=== PATIENT | female | born 1965 | race Caucasian/White ===

== ENCOUNTER 2020-01-31 12:43 | Outpatient (CLI) | payer OTHER, SELFPAY ==
[2020-01-31 21:30] LABS: SARS-CoV-2 RNA PCR Negative
== END 2020-01-31 12:44 | disposition home or self-care (01) ==
LOC: CHSLAB 12:45
PROVIDERS: PCP Nurse Practitioner Family; Visit Provider Nurse Practitioner Family
DX: Z20.828 Contact with and (suspected) exposure to other viral communicable diseases (principal)
CPT/HCPCS: 87635; C9803; U0003

== ENCOUNTER 2020-05-17 08:09 | Outpatient (CLI) | payer OTHER, SELFPAY ==
--- NOTE | ~2020-05-17 | MM_ITS ---
EXAMINATION: MM screening cody BI w norris HISTORY: Screening mammogram TECHNIQUE: Craniocaudal and mediolateral oblique 3-D tomosynthesis images were obtained and synthetic 2-D images were generated. CAD analysis was submitted and interpreted. COMPARISON: 01/18/2019, 01/05/2018, 06/18/2016 bilateral digital screening mammogram examinations BREAST PARENCHYMAL COMPOSITION: The breasts are heterogeneously dense, which may obscure small masses . FINDINGS: There is no evidence of suspicious mass, calcification, or architectural distortion to sugg est malignancy in either breast. There has been no suspicious interval change. IMPRESSION: 1. No mammographic evidence of malignancy. 2. Recommend routine screening mammography in one year. BI-RADS Category 1: Negative Reviewed, dictated and finalized at location A. ITY DEVELOPER
[2020-05-17 08:24] LABS: Hematocrit 42.4 % (35.0-49.0); Hemoglobin 13.6 g/dL (12.0-15.0); Mean Corpuscular HGB Conc 32.1 g/dL (32.0-36.0); Mean Corpuscular Hemoglobin 29.3 pg (27.0-31.0); Mean Corpuscular Volume 91.4 fL (78.0-102.0); Mean Platelet Volume 10.8 fl (9.2-11.8); Platelet Count Result 202 K/mm3 (150-420); Red Blood Count 4.64 M/mm3 (4.20-5.40); White Blood Count 7.1 K/mm3 (4.8-10.8)
[2020-05-17 09:06] LABS: Hemoglobin A1C 6.5 % (<5.7)
[2020-05-17 09:27] LABS: Alanine Aminotransferase 33 U/L (14-59); Alkaline Phosphatase 69 U/L (46-116); Anion Gap 8 mmol/L (8-16); Aspartate Amino Transferase 17 U/L (15-37); Bilirubin,Total 0.3 mg/dL (0.00-1.00); Blood Urea Nitrogen 19 mg/dL (7-18); Calcium 9.2 mg/dL (8.5-10.1); Carbon Dioxide 31 mmol/L (21-32); Chloride 104 mmol/L (98-108); Cholesterol 125 mg/dL (0-200); Estimated Glomerular Filt Rate > 60; Glucose 132 mg/dL (70-99); HDL Direct 36 mg/dL (40-60); LDL Cholesterol Calculated 67 mg/dL (<130); Osmolality Calculated 300 mOsm/kg (285-295); Potassium 4.4 mmol/L (3.5-5.1); Sodium 143 mmol/L (136-145); Thyroid Stimulating Hormone 2.02 uIU/mL (0.36-3.74); Triglycerides 108 mg/dL (0-150)
== END 2020-05-17 08:10 | disposition home or self-care (01) ==
PROVIDERS: PCP Nurse Practitioner Family; Visit Provider Obstetrics & Gynecology
DX: E87.2 Acidosis (principal); E11.9 Type 2 diabetes mellitus without complications; Z12.31 Encounter for screening mammogram for malignant neoplasm of breast
CPT/HCPCS: 36415; 77063; 77067; 80053; 80061; 83036; 84443; 85027

== ENCOUNTER 2021-01-23 08:11 | Outpatient (CLI) | payer OTHER, SELFPAY ==
[2021-01-25 14:30] LABS: Varicella IgM Antibody <=0.90 (<=0.90)
[2021-01-25 18:46] LABS: Mumps Virus IgG Antibody <9.00 AU/mL; Rubella IgG Antibody 1.67 Index
[2021-01-26 10:12] LABS: NIL 0.02 IU/mL; Quantiferon TB Plus, 1T NEGATIVE
[2021-01-26 15:19] LABS: Rubeola Measles IgG >300.00 AU/mL
== END 2021-01-23 08:12 | disposition home or self-care (01) ==
LOC: CHSLAB 08:15
PROVIDERS: PCP Nurse Practitioner Family; Visit Provider Nurse Practitioner Family
DX: Z02.1 Encounter for pre-employment examination (principal)
CPT/HCPCS: 36415; 86480; 86735; 86762; 86765; 86787

== ENCOUNTER 2021-06-07 12:41 | Outpatient (CLI) | payer OTHER, SELFPAY ==
--- NOTE | ~2021-06-07 | MM_ITS ---
EXAMINATION: MM screening cody BI w norris HISTORY: Screening mammogram TECHNIQUE: Craniocaudal and mediolateral oblique 3-D tomosynthesis images were obtained and synthetic 2-D images were generated. CAD analysis was submitted and interpreted. COMPARISON: 05/17/2020, 01/18/2019, 01/05/2018 bilateral screening mammogram examinations BREAST PARENCHYMAL COMPOSITION: The breasts are heterogeneously dense, which may obscure small masses . FINDINGS: There is no evidence of suspicious mass, calcification, or architectural distortion to sugg est malignancy in either breast. There has been no suspicious interval change. IMPRESSION: 1. No mammographic evidence of malignancy. 2. Recommend routine screening mammography in one year. BI-RADS Category 1: Negative Reviewed, dictated and finalized at location A. VE BOARD RACKER
== END 2021-06-07 12:42 | disposition home or self-care (01) ==
PROVIDERS: PCP Nurse Practitioner Family; Visit Provider Obstetrics & Gynecology
DX: Z12.31 Encounter for screening mammogram for malignant neoplasm of breast (principal)
CPT/HCPCS: 77063; 77067

== ENCOUNTER 2022-08-15 11:42 | Outpatient (CLI) | payer OTHER, SELFPAY ==
--- NOTE | ~2022-08-15 | MM_ITS ---
EXAMINATION: MM screening cody BI w norris HISTORY: Screening mammogram TECHNIQUE: Craniocaudal and mediolateral oblique 3-D tomosynthesis images were obtained and synthetic 2-D images were generated. CAD analysis was submitted and interpreted. COMPARISON: 06/07/2021, 05/17/2020, 01/18/2019 bilateral screening mammogram examinations BREAST PARENCHYMAL COMPOSITION: The breasts are heterogeneously dense, which may obscure small masses . FINDINGS: There is no evidence of suspicious mass, calcification, or architectural distortion to sugg est malignancy in either breast. There has been no suspicious interval change. IMPRESSION: 1. No mammographic evidence of malignancy. 2. Recommend routine screening mammography in one year. BI-RADS Category 1: Negative Reviewed, dictated and finalized at location A. RY GROWER
== END 2022-08-15 11:43 | disposition home or self-care (01) ==
LOC: CHSIMG 11:44
PROVIDERS: PCP Nurse Practitioner Family; Visit Provider Obstetrics & Gynecology
DX: Z12.31 Encounter for screening mammogram for malignant neoplasm of breast (principal)
CPT/HCPCS: 77063; 77067

== ENCOUNTER 2023-06-27 08:36 | Outpatient (CLI) | payer OTHER, SELFPAY ==
[2023-06-27 08:50] LABS: Basophils Absolute Auto 0.07 K/mm3 (0.00-0.10); Eosinophils Absolute Auto 0.13 K/mm3 (0.02-0.50); Eosinophils Percent Auto 1.9 % (1.0-6.0); Hemoglobin 14.2 g/dL (12.0-15.0); Immature Granulocyte Absolute 0.02 K/mm3 (0.00-0.00); Immature Granulocyte Percent A 0.3 % (0.0-0.0); Lymphocytes Absolute Auto 0.92 K/mm3 (1.10-4.50); Lymphocytes Percent Auto 13.8 % (18.0-42.0); Mean Corpuscular Hemoglobin 30.7 pg (27.0-31.0); Mean Corpuscular Volume 92.9 fL (78.0-102.0); Mean Platelet Volume 10.1 fl (9.2-11.8); Monocytes Absolute Auto 0.47 K/mm3 (0.10-0.90); Neutrophils Absolute Auto 5.1 K/mm3 (1.7-7.2); Platelet Count Result 192 K/mm3 (150-420); Red Blood Count 4.63 M/mm3 (4.20-5.40); Red Cell Distribution Width 12.5 % (11.6-14.4); White Blood Count 6.7 K/mm3 (4.8-10.8)
[2023-06-27 09:11] LABS: Creatinine Urine 74.45 mg/dL (40-278); MALB Creatinine Ratio 17.4 mg/g (0-30); Microalbumin Urine Random < 13.0 mg/L
[2023-06-27 09:12] LABS: Hemoglobin A1C 7.7 % (<5.7)
[2023-06-27 09:24] LABS: Alanine Aminotransferase 49 U/L (14-59); Albumin Level 3.8 g/dL (3.4-5.0); Alkaline Phosphatase 86 U/L (46-116); Anion Gap 5 mmol/L (8-16); Aspartate Amino Transferase 23 U/L (15-37); Bilirubin,Total 0.4 mg/dL (0.00-1.00); Blood Urea Nitrogen 22 mg/dL (7-18); Carbon Dioxide 32 mmol/L (21-32); Chloride 103 mmol/L (98-108); Cholesterol 217 mg/dL (0-200); Estimated Glomerular Filt Rate > 60; Glucose 191 mg/dL (70-99); HDL Direct 60 mg/dL (40-60); LDL Cholesterol Calculated 128 mg/dL (<130); Osmolality Calculated 298 mOsm/kg (285-295); Potassium 4.4 mmol/L (3.5-5.1); Sodium 140 mmol/L (136-145); Total Protein 6.9 g/dL (6.4-8.2); Triglycerides 146 mg/dL (0-150)
== END 2023-06-27 08:37 | disposition home or self-care (01) ==
LOC: CHSLAB 08:37
PROVIDERS: PCP Family Medicine; Visit Provider Family Medicine
DX: E11.9 Type 2 diabetes mellitus without complications (principal); E78.2 Mixed hyperlipidemia
CPT/HCPCS: 36415; 80053; 80061; 82043; 83036; 85025

== ENCOUNTER 2023-09-19 08:26 | Outpatient (CLI) | payer OTHER, SELFPAY ==
--- NOTE | ~2023-09-19 | MM_ITS ---
EXAMINATION: MM screening cody BI w norris HISTORY: Screening mammogram TECHNIQUE: Craniocaudal and mediolateral oblique 3-D tomosynthesis images were obtained and synthetic 2-D images were generated. CAD analysis was submitted and interpreted. COMPARISON: August 15, 2022, June 07, 2021 bilateral screening mammogram examinations BREAST PARENCHYMAL COMPOSITION: The breasts are heterogeneously dense, which may obscure small masses . FINDINGS: There is no evidence of suspicious mass, calcification, or architectural distortion to sugg est malignancy in either breast. There has been no suspicious interval change. IMPRESSION: 1. No mammographic evidence of malignancy. 2. Recommend routine screening mammography in one year. BI-RADS Category 1: Negative Reviewed, dictated and finalized at location A.
== END 2023-09-19 08:27 | disposition home or self-care (01) ==
LOC: CHSIMG 08:27
PROVIDERS: PCP Family Medicine; Visit Provider Obstetrics & Gynecology
DX: Z12.31 Encounter for screening mammogram for malignant neoplasm of breast (principal)
CPT/HCPCS: 77063; 77067

== ENCOUNTER 2024-01-20 15:56 | Outpatient (NON) | payer OTHER, SELFPAY ==
[2024-01-20 16:16] LABS: Creatinine Urine 46.93 mg/dL (40-278); MALB Creatinine Ratio 27.7 mg/g (0-30); Microalbumin Urine Random < 13.0 mg/L
== END 2024-01-20 15:57 | disposition home or self-care (01) ==
LOC: CHSLAB 15:57
PROVIDERS: Visit Provider Nurse Practitioner Family
DX: E11.9 Type 2 diabetes mellitus without complications (principal)
CPT/HCPCS: 82043

== ENCOUNTER 2024-10-08 12:10 | Outpatient (CLI) | payer OTHER, SELFPAY ==
--- NOTE | ~2024-10-08 | MM_ITS ---
EXAMINATION: MM screening cody BI w norris HISTORY: Screening TECHNIQUE: Craniocaudal and mediolateral oblique 3-D tomosynthesis images were obtained and synthetic 2-D images were generated. CAD analysis was submitted and interpreted. COMPARISON: Comparison to multiple prior studies sequentially, with oldest reviewed study dated 01/18. BREAST PARENCHYMAL COMPOSITION: Dense: The breasts are extremely dense, which lowers the sensitivity of mammography. FINDINGS: There is no evidence of suspicious mass, calcification, or architectural distortion to sugg est malignancy in either breast. There has been no suspicious interval change. IMPRESSION: 1. No mammographic evidence of malignancy. 2. Recommend routine screening mammography in one year. BI-RADS Category 1: Negative Reviewed, dictated and finalized at location B.
--- OUTSIDE RECORDS SUMMARY | 2024-10-08 12:13 | XMS_ITS | Clinical Summary ---
Author Organization [facility] Address [address] [place] [address] Phone Care Team Providers Care Retirement Manager Name Role Phone Tor Girard MD Primary Care Provider Allergies No known active allergies Medications No known medications Social History Tobacco Use Types Packs/Day Years Used Date Smoking Tobacco: Never Smokeless Tobacco: Never Tobacco Cessation:Counseling Given: Not Answered Comments Unknown Sex and Gender Information Value Date Recorded Sex Assigned at Not on file Legal Sex Female 9:26 AM CDT Gender Identity Not on file Sexual Orientation Not on file Last Filed Vital Signs Vital Sign Reading Time Taken Comments Blood Pressure 140/80 12/31/2023 10:49 AM CDT Pulse 90 12/31/2023 10:49 AM CDT Temperature 37.1 C (98.8 F) 12/31/2023 10:49 AM CDT Respiratory Rate 16 12/31/2023 10:49 AM CDT Oxygen Saturation 100% 12/31/2023 10:49 AM CDT Inhaled Oxygen Concentration - - Weight 54.4 kg (120 lb) 12/31/2023 9:33 AM CDT Height 160 cm (5' 3 ) 12/31/2023 9:33 AM CDT Body Mass Index 21.26 12/31/2023 9:33 AM CDT Plan of Treatment Health Maintenance Due Date Last Done Comments Hepatitis C Virus (HCV) Screening 1966 Mammogram 1966 TdaP Immunization 1966 Hepatitis B Immunization (1 of 3 - 19+ 3-dose series) 1985 Pap Smear 1987 Cervical Cancer Screening (CCS) 1996 HPV/Cotest 1996 Colonoscopy 2011 Colorectal Cancer Screening 2011 Cologuard 2016 Immunochemical Fecal Occult Blood 2016 Pneumococcal Immunization (5 0+ years) (1 of 1 - PCV) 2016 Zoster Immunization (1 of 2) 2016 Influenza Immunization (#1) 2024 SARS-COV-2 Immunization ( season) 2024 06/29/2021, 09/11/2020, 08/01/2020 Respiratory Syncytial Virus (RSV) Immunization (Adult) (1 - 1-dose 75+ series) 2041 Meningococcal Immunization (ACWY) Aged Out No longer eligible b ased on patient's age to complete this topic Rotavirus Immunization Aged Out No lo nger eligible based on patient's age to complete this topic Insurance [employer] Care Teams Retirement Manager Relationship Specialty Start Date End Date Tor Girard MD [address] [place] [id number] PCP - General Family Medicine 12/31/23
--- OUTSIDE RECORDS SUMMARY | 2024-10-08 12:13 | XMS_ITS | Clinical Summary ---
Author Organization [facility] [address] [facility] lt Address [address] [place] [address] Care Team Providers Care Recovery Auditor Name Role Phone Lidia Alvarado NP Primary Care Provider [phone] Allergies No known active allergies Medications atorvastatin (LIPITOR) 20 mg tablet 06/07/2019 Active estradiol (ESTRACE) 1 mg tablet 07/19/2019 Active medroxyPROGESTERon e (PROVERA) 2.5 mg tablet 06/25/2019 Active metFORMIN (GLUCOPHAGE) 1,000 mg tablet 06/07/2019 Active sertraline (ZOLOFT) 50 mg tablet 06/02/2019 Active traZODone (DESYREL) 100 mg tablet 07/20/2019 Active Active Problems No known active problems Social History Tobacco Use Types Packs/Day Years Used Date Smoking Tobacco: Light Smoker E-cigarettes Personal Safety Answer Date Recorded Getting School Help Needed Not on file 09/05 Comments Unknown Sex and Gender Information Value Date Recorded Sex Assigned at Not on file Legal Sex Female 6:50 PM SR SOLUTIONS CONSULTANT Gender Identity Not on file Sexual Orientation Not on file Obstetrics History Last Filed Vital Signs Vital Sign Reading Time Taken Comments Blood Pressure 126/82 08/01/2019 1:23 PM SR SOLUTIONS CONSULTANT Pulse 103 08/01/2019 1:23 PM SR SOLUTIONS CONSULTANT Temperature 36.6 C (97.9 F) 08/01/2019 1:23 PM SR SOLUTIONS CONSULTANT Respiratory Rate 16 08/01/2019 1:23 PM SR SOLUTIONS CONSULTANT Oxygen Saturation 98% 08/01/2019 1:23 PM SR SOLUTIONS CONSULTANT Inhaled Oxygen Concentration - - Weight 59 kg (130 lb) 08/01/2019 1:23 PM SR SOLUTIONS CONSULTANT Height 157.5 cm (5' 2 ) 08/01/2019 1:23 PM SR SOLUTIONS CONSULTANT Body Mass Index 23.78 08/01/2019 1:23 PM SR SOLUTIONS CONSULTANT Plan of Treatment Not on file Insurance [facility] Care Teams Recovery Auditor Relationship Specialty Start Date End Date Lidia Alvarado NP [address] [place] [address] PCP - General Nurse Practitioner 07/27/19
--- OUTSIDE RECORDS SUMMARY | 2024-10-08 12:13 | XMS_ITS | Data Portability ---
Author Organization [facility] Address [address] [place] [address] Care Team Providers Care Brim Blocker Name Role Phone JHONATHAN ROMO Unit Clerk Assessment Encounter Date Assessment Date Assessment LastModified by Organization Details LastModified Time 05/10/2021 05/10/2021 doing well, career consultant exam benign does well on continuous HRT with estradiol and provera Not available 05/10/2021 11:49:19 05/23/2022 05/23/2022 career consultant exam normal, no new issues good spirits needs to something fun Not available 05/23/2022 12:44:53 05/30/2023 05/30/2023 normal PRIME MINISTER exam, no new issues for career consultant trip to [facility] next year? Not available 05/30/2023 10:33:59 05/31/2024 05/31/2024 career consultant exam benign no new issues good spirits Not available 05/31/2024 14:21:29 Plan of Treatment Reminders Order Date Submit Date Provider Last Modified By Organization Details Last Modified Time Details Appointments ANNUAL 30 2024 01:30P M Jhonathan Romo MD Not available Not available Not available Lab cytology report, thin prep, smear or scraping, cervical or vaginal 2021 022 [facility], [address] [place] [address], [address], [place], [address], 05/31/2022 16:13:03 Referral None recorded. Procedures None recorded. Surgeries None recorded. Imaging MAMMO, screening , digital, bilateral - Due 08/2024 024 [facility] [address] [place], [address], 10/01/2024 16:00:39 MAMMO, screening , digital, bilateral 2022 023 [facility]), [address] [place], [address], 07/15/2023 09:31:30 MAMMO, screening , digital, bilateral 2021 022 [facility]), [address] [place] [address], [address], 08/16/2022 08:19:02 MAMMO, screening , digital, bilateral 2020 021 [facility]), [address] [place], [address], 06/08/2021 08:57:12 Medication Orders medroxypr ogesteron e 2.5 mg tablet 2023 024 [facility] #[id number], [address] [place], [address], 05/31/2024 14:11:36 estradiol 1 mg tablet 2023 024 [facility] #[id number], [address] [place], [address], 05/31/2024 14:11:36 medroxypr ogesteron e 2.5 mg tablet 2022 023 [facility] #[id number], [address] [place], [address], 05/30/2023 10:34:03 estradiol 1 mg tablet 2022 023 [facility] #[id number], [address] [place], [address], 05/30/2023 10:34:03 medroxypr ogesteron e 2.5 mg tablet 2020 021 [facility] #[id number], [address] [place], [address], 05/10/2021 11:49:24 estradiol 1 mg tablet 2020 021 [facility] #[id number], [address] [place], [address], 05/10/2021 11:49:23 Patient TargetsNo targets recorded. Patient Instructions Encounter Date Encounter Id Patient Instructions Last Modified By Organization Details Last Modified Time 05/10/2021 [id number] learning about breast cancer screening Not available 05/10/2021 11:37:46 05/23/2022 [id number] learning about breast cancer screening Not available 05/23/2022 12:38:52 05/30/2023 [id number] learning about breast cancer screening Not available 05/30/2023 10:21:26 05/31/2024 [id number] mammogram: about this test Not available 05/31/2024 14:11:34 Reason for Referral None Reported. Results Created Date Observation Date Name Description Value Unit Range Abnormal Flag Note LastModifiedBy Organization Detail LastModifiedTime 05/23/2005/31/2022 IGP, RFX APTIM A HPV ASCU diagnosis: Commen t NEGAT LATIA FOR INTRA EPITH ELIAL LESIO N OR OMKAR CABRERA . THIS SPECI MEN WAS RESCR EENED PART OF OUR QUALI TY CONTR OL PROGR AM. Not Available [facility] ([facility]) [address] [facility], [place], [address], 05/31/2022 16:13:03 05/23/20 22 05/31/2022 IGP, RFX APTIM A HPV ASCU specimen adequacy: Commen t Satis facto ry for evalu ation . No endoc ervic al compo nent is ident ified . Not Available [facility] ([facility]) [address] [place], [address], 05/31/2022 16:13:03 05/23/20 22 05/31/2022 IGP, RFX APTIM A HPV ASCU clinician provided ICD10: Denise esquivel Z01.4 19 Not Available [facility] ([facility]) [address] [place], [address], 05/31/2022 16:13:03 05/23/20 22 05/31/2022 IGP, RFX APTIM A HPV ASCU performed by: Denise lopez, Cytot echno logis t (ASCP ) Not Available [facility] ([facility]) [address] [place], [address], 05/31/2022 16:13:03 05/23/20 22 05/31/2022 IGP, RFX APTIM A HPV ASCU QC reviewed by: Denise Mcneill n, Super visor y Cytot echno logis t (ASCP ) Not Available [facility] ([facility]) [address] [place], [address], 05/31/2022 16:13:03 05/23/20 22 05/31/2022 IGP, RFX APTIM A HPV ASCU . . Not Available [facility] ([facility]) [address] [place], [address], 05/31/2022 16:13:03 05/23/20 22 05/31/2022 IGP, RFX APTIM A HPV ASCU note: Denise esquivel The Pap smear is a scree chantale test desig parris to aid in the detec tion of jerel ligna nt and malig nant condi tions of the uteri ne cervi x. It is not a diagn ostic proce dure and shoul d not be used as the sole means of detec ting cervi norma cance r. Both false -posi tive and false -nega tive repor ts do occur . Not Available [facility] ([facility]) [address] [facility], [place], [address], 05/31/2022 16:13:03 05/23/20 22 05/31/2022 IGP, RFX APTIM A HPV ASCU test methodology: Commen t This liqui d based ThinP rep(R ) pap test was laurita nye with the use of an image guide aurora mckinney Not Available [facility] ([facility]) [address] [facility], [place], [address], 05/31/2022 16:13:03 05/23/20 22 05/31/2022 IGP, RFX APTIM A HPV ASCU . Commen t The HPV DNA refle x crite kathleen were not met with this speci men resul t there fore, no HPV testi ng was perfo rmed. Not Available [facility] ([facility]) [address] [facility], [place], [address], 05/31/2022 16:13:03 06/07/20 21 06/07/2021 MAMMO , hoae chantale, digit al, bilat eral No observ ation record ed. [facility]) [address] [place] [address], [address], 06/08/2021 09:34:00 08/15/19 23 08/15/2022 MAMMO , scree chantale, digit al, bilat eral No observ ation record ed. [facility]) [address] [place] [address], [address], 08/16/2022 09:28:25 09/20/19 24 09/19/2023 MAMMO , scree chantale, digit al, bilat eral No observ ation record ed. [facility]) [address] [place] [address], [address], 09/22/2023 09:43:21 Result Notes None recorded. Problems Name Problem SNOMED Code Status Onset Date Resolution Date Notes Provider Name and Address Organization Details Recorded Time Anxiety [id number] Active Marla nickerson, [facility] 07/02/2021 08:28:15 Problem Notes None recorded. Procedures Surgical History Date Name Laterality Status Provider Name and Address Organization Details Recorded Time 4 Most Recent Mammogram completed Lawanda Ward RN [facility] 09/22/2023 09:43:32 2 Date of Last Pap Smear completed Lawanda Ward RN [facility] 05/31/2022 16:17:22 Imaging Results Imaging Date Name Status LastModified by Organiz ation Details LastModified Time 06/07/2021 MAMMO, screening, digital, bilateral completed [facility]) [address] [place] [address], [address], 06/08/2021 09:34:00 08/15/2022 MAMMO, screening, digital, bilateral completed [facility]) [address] [place] [address], [address], 08/16/2022 09:28:25 09/19/2023 MAMMO, screening, digital, bilateral completed [facility]) [address] [place] [address], [address], 09/22/2023 09:43:21 Procedure Notes None recorded. Medical Equipment None Reported. Allergies No known drug allergies Medications Name Sig Start Date Stop Date Status Note LastModified by Organization Details LastModified Time metformin 500 mg tablet 05/13 completed Not Available Not Available Not Available venlafaxine ER 75 mg capsule,ext ended release 24 hr TAKE 1 CAPSULE BY MOUTH EVERY DAY 05/31 completed Not Available Not Available Not Available atorvastati n 20 mg tablet TAKE 1 TABLET BY MOUTH EVERY DAY active Not Available Not Available No t Available trazodone 50 mg tablet 05/13 completed Not Available Not Available Not Available azithromyci n 250 mg tablet 05/13 completed Not Available Not Available Not Available CombiPatch 0.05 mg-0.14 mg/24 hr transdermal APPLY 1 PATCH TWICE A WEEK 05/31 completed Not Available Not Available Not Available medroxyprog esterone 2.5 mg tablet TAKE 1 TABLET BY MOUTH EVERY DAY 2023 active Not Available Not Available Not Avai lable venlafaxine ER 150 mg capsule,ext ended release 24 hr TAKE 1 CAPSULE BY MOUTH EVERY DAY 05/31 completed Not Available Not Available Not Available sulfamethox azole 800 mg-trimetho prim 160 mg tablet 05/13 completed Not Available Not Available Not Available alprazolam 0.5 mg tablet TAKE 1 TABLET BY MOUTH TWICE A DAY NEEDED FOR ANXIETY active Not Available Not Available No t Available estradiol 1 mg tablet TAKE 1 TABLET BY MOUTH EVERY DAY 2023 active Not Available Not Available Not Avai lable trazodone 100 mg tablet TAKE 1 TABLET BY MOUTH EVERYDAY AT BEDTIME active Not Available Not Available No t Available metformin 1,000 mg tablet 05/13 completed Not Available Not Available Not Available buspirone 7.5 mg tablet TAKE 1 TABLET BY MOUTH TWICE A DAY active Not Available Not Available No t Available hydroxyzine HCl 25 mg tablet TAKE 1 TO 2 TABLETS BY MOUTH 3 TIMES DAILY NEEDED FOR SEVERE ANXIETY 05/13 completed Not Available Not Available Not Available sertraline 50 mg tablet 50 MG ORALLY DAILY active Not Available Not Available No t Available bupropion HCl XL 300 mg 24 hr tablet, extended release TAKE 1 TABLET BY MOUTH EVERY DAY active Not Available Not Available No t Available bupropion HCl XL 150 mg 24 hr tablet, extended release TAKE 1 TABLET BY MOUTH EVERY MORNING 05/31 completed Not Available Not Available Not Available nitrofurant oin monohydrate /macrocryst als 100 mg capsule 05/13 completed Not Available Not Available Not Available Accu-Chek SmartView Test Strips 05/31 completed Not Available Not Available Not Available Accu-Chek Lali 05/31 completed Not Available Not Available Not Available Jardiance 10 mg tablet TAKE 1 TABLET BY MOUTH EVERY DAY active Not Available Not Available No t Available Trulicity 0.75 mg/0.5 mL subcutaneou s pen injector INJECT 0.75 MG (0.5 ML) SUBCUTANE OUSLY WEEKLY active Not Available Not Available No t Available Accu-Chek Fastclix Lancet Drum 05/31 completed Not Available Not Available Not Available Vitals Date Recorded Body weight Systolic blood pressure Diastolic blood pressure Provider Name and Address Organization Details Last Updated DateTime 05/10/2021 98480.96 g 132 mm[Hg] 86 mm[Hg] Mildred Millan [facility] 05/10/2021 11:24:21 Date Recorded Body height Body mass index (BMI) Body weight Systolic blood pressure Diastolic blood pressure Provider Name and Address Organization Details Last Updated DateTime 05/23/2022 157.48 cm 23.1 kg/m2 43298.36 g 140 mm[Hg] 88 mm[Hg] Mildred Millan [facility] 2 12:25:53 Date Recorded Body height Body mass index (BMI) Body weight Systolic blood pressure Diastolic blood pressure Provider Name and Address Organization Details Last Updated DateTime 05/30/2023 157.48 cm 22.5 kg/m2 38345.01 g 146 mm[Hg] 82 mm[Hg] Mildred Millan [facility] 3 10:06:26 Date Recorded Body height Body mass index (BMI) Body weight Systolic blood pressure Diastolic blood pressure Provider Name and Address Organization Details Last Updated DateTime 05/31/2024 157.48 cm 21.6 kg/m2 73240.9 g 123 mm[Hg] 82 mm[Hg] Mildred Millan [facility] 4 14:03:12 Social History Question Answer Notes LastModified by Organizat ion Details LastModified Time Tobacco Smoking Status Former Smoker CHRISTINA Avila, [facility] 02/07/2015 08:53:32 How Much Tobacco Do You Chew? None Information not available 05/08/2020 In The 14 Days Before Symptom Onset, Have You Had Close Contact With A Laboratory-confir med COVID-19 While That Case Was Ill? No Information not available 05/10/2021 In The 14 Days Before Symptom Onset, Have You Had Close Contact With A Person Who Is Under Investigation For COVID-19 While That Person Was Ill? No Information not available 05/10/2021 Have You Been To An Area Known To Be High Risk For COVID-19? No Information not available 05/10/2021 Are You Currently Employed? Yes Information not available 05/08/2020 What Type Of Diet Are You Following? REGULAR Information not available 05/08/2020 Do You Or Have You Ever Used E-cigarettes Or Vape? Never Used Electronic Cigarettes Information not available 05/08/2020 What Was The Date Of Your Most Recent Tobacco Screening? 05/31/2024 Information not available 05/31/2024 How Many Children Do You Have? 2 Information not available 02/07/2015 What Is Your Relationship Status? Information not available 02/07/2015 Do You Or Have You Ever Used Smokeless Tobacco? Never Used Smokeless Tobacco Information not available 05/08/2020 How Much Tobacco Do You Smoke? No Information not available 05/08/2020 General Stress Level Low Information not available 05/08/2020 Has Tobacco Cessation Counseling Been Provided? No Information not available 05/10/2021 On What Date Was Tobacco Cessation Counseling Provided? 05/10/2021 Information not available 05/10/2021 Do You Or Have You Ever Used Any Other Forms Of Tobacco Or Nicotine? No Information not available 05/10/2021 Sex: Female Functional Status Question Answer Note LastModified by Organizat ion Details LastModified Time What is your exercise level? Occasional Information not available 05/08/2020 Mental Status None recorded. Family History Nothing Reported Notes:no HX. of cancer Medical History Condition Response Anxiety/Depression Y Gynecological History Statement/Question Response Abnormal Pap N Flow Heavy Menses Monthly N STIs/STDs N Date of Last Pap Smear 05/23/2022 Sexual Problems? N Current Control Method Menopause Most Recent Mammogram 09/19/2023 LMP Definite Obstetrics History GPAL:G 4 P 2 0 2 2 Type Value Full Term 2 Spontaneous 2 Living 2 Total 4 Immunizations Vaccine Type Date Status Note Provider Nam e and Address Organization Details Recorded Time COVID-19, mRNA, LNP-S, PF, 100 mcg/0.5mL dose or 50 mcg/0.25mL dose 06/29/2021 completed Mildred Millan, [place], [place] [facility] 05/13/2022 11:43:09 COVID-19, mRNA, LNP-S, PF, 100 mcg/0.5mL dose or 50 mcg/0.25mL dose 08/01/2020 completed Mildred Millan, [place] [facility] 05/13/2022 11:43:08 MMR 01/30/2021 completed Mildred Millan, [place] [facility] 05/13/2022 11:43:09 COVID-19, mRNA, LNP-S, PF, 100 mcg/0.5mL dose or 50 mcg/0.25mL dose 09/11/2020 completed Mildred Millan, [place] [facility] 05/13/2022 11:43:09 MMR 03/01/2021 completed Mildred Millan [place] [facility] 05/13/2022 11:43:09 Past Encounters Encounter ID Performer Location Encounter Start Date Encounter Closed Date Diagnosis/Indication Diagnosis SNOMED-CT Code Diagnosis ICD10 Code Diagnosis Note [id number] [place] [address] [address] [facility] [address] [place] [address] 03/10/2015 14:00:39 03/10/2015 16:47:47 Gynecologic examination 67885488 Screening for malignant neoplasm of breast 606833461 [id number] [place] [address]) [address] [facility] [address] [place] [address] 03/15/2016 14:16:09 03/18/2016 10:41:53 Gynecologic examination 21415043 Z01.419 Screening for malignant neoplasm of breast 089930897 Z12.31 [id number] MD Kay Davies ([facility]) [address] [facility] [address] [place] [address] 04/11/2017 14:21:02 04/14/2017 09:52:41 Body mass index 25-29 - overweight 111386409 Z68.25 Screening for malignant neoplasm of colon 745459023 Z12.11 Gynecologi c examination 49683853 Z01.419 Screening for malignant neoplasm of breast 982477891 Z12.31 [id number] MD Kay Davies 14 OB [address] [facility] [place] [address] 05/04/2018 10:17:07 05/13/2018 11:06:36 Screening for malignant neoplasm of colon 741858782 Z12.11 Gynecologi c examination 48944631 Z01.419 Screening for malignant neoplasm of breast 627795230 Z12.31 [id number] MD Kay Davies 14 OB [address] [facility] [place] [address] 05/07/2019 10:14:59 05/10/2019 11:10:08 Screening for malignant neoplasm of colon 857720213 Z12.11 Gynecologi c examination 47864816 Z01.988 [id number] MD Kay Davies 14 OB [address] [facility] [place] [address] 05/08/2020 14:16:28 05/09/2020 12:06:22 Screening for malignant neoplasm of colon 826382332 Z12.11 Gynecologi c examination 31677443 Z01.419 Screening for malignant neoplasm of breast 671444846 Z12.31 Menopause present 380227 006 N95.1 [id number] MD Kay Davies 14 OB [address] [facility] [place] [address] 05/10/2021 10:52:05 05/11/2021 06:31:01 Gynecologic examination 25650514 Z01.419 Screening for malignant neoplasm of breast 276272779 Z12.31 Menopause present 388516 006 N95.1 [id number] Lawanda Ward RN [place] 14 OB [address] [facility] [place] [address] 05/13/2022 11:11:59 05/14/2022 17:14:11 [id number] MD Kay Davies 14 OB [address] [facility] [place] [address] 05/23/2022 11:44:34 05/26/2022 15:36:59 Gynecologic examination 16131338 Z01.419 Screening for malignant neoplasm of breast 424122775 Z12.31 Menopause present 153050 006 N95.1 [id number] MD Kay Davies 14 OB [address] [facility] [address] [place] [address] 05/30/2023 09:49:10 06/04/2023 15:56:45 Gynecologic examination 41180031 Z01.419 Screening for malignant neoplasm of breast 076700054 Z12.31 Menopause present 459079 006 N95.1 [id number] MD Kay Davies 14 OB [address] [facility] [address] [place] [address] [address] 05/31/2024 13:38:31 06/07/2024 13:01:39 Menopause present 140034331 N95.1 Screening mammography 24 629458 Z12.31 Depression screening 171 563195 Z13.31 Gynecologi c examination 84552420 Z01.419 Health Concerns Section Related Observation LastModified by Organization Detai ls LastModified Time None Recorded Concern Status LastModified by Organization Details LastModified Time None Recorded Advance Directives Directive None Recorded Payers Encounter Date Sequence Insurance Name Policy Number Policy Carlin Covered Member ID Carlin Member ID Guarantor Name 05/10/2021 1 [employer] - CHOICE (POS II) [id number] Andra M Aleman [id number] Andra M Aleman 05/13/2022 1 [employer] - CHOICE (POS II) [id number] Andra Goodman Aleman [id number] Andra Goodman Aleman 05/23/2022 1 [employer] - CHOICE (POS II) [id number] Andra M Aleman [id number] Andra M Aleman 05/30/2023 1 [employer] - CHOICE (POS II) [id number] Andra Goodman Aleman [id number] Andra Goodman Aleman 05/31/2024 1 [employer] - CHOICE (POS II) [id number] Andra M Aleman [id number] Andra M Aleman Notes Date Note Type Note Provider Name and Address Organization Details Recorded Time 05/10/2021 text/html Annual GYNReport ed bypatient.Menstrua l cycle:Normal menses Urinary symptoms:No hematuria; No incontinence Vulva:No genital lesion Vagina:Normal vaginal discharge Breast:No breast pain; No breast lump; No nipple discharge Current Contraception:Part ner had vasectomy Sexual complaints:No sexual complaints; No pain during intercourse; Normal libido Menopausal Symptoms:No menopausal symptoms; Normal vaginal lubrication Psychological symptoms:No depression; No anxiety; No PMDD Jhonathan Romo MD Attn: [address]ing[address] [place], [address], [facility] 05/10/2021 11:49:44 05/23/2022 text/html Annual GYNReport ed bypatient.Menstrua l cycle:Normal menses Urinary symptoms:No hematuria; No incontinence Vulva:No genital lesion Vagina:Normal vaginal discharge Breast:No breast pain; No breast lump; No nipple discharge Current Contraception:Part ner had vasectomy Sexual complaints:No sexual complaints; No pain during intercourse; Normal libido Menopausal Symptoms:No menopausal symptoms; Normal vaginal lubrication Psychological symptoms:No depression; No anxiety; No PMDD Jhonathan Romo MD Attn: Accounting[address] [place], [address], [facility] 05/23/2022 12:45:44 05/30/2023 text/html Annual GYNReport ed bypatient.Menstrua l cycle:Normal menses Urinary symptoms:No hematuria; No incontinence Vulva:No genital lesion Vagina:Normal vaginal discharge Breast:No breast pain; No breast lump; No nipple discharge Current Contraception:Part ner had vasectomy Sexual complaints:No sexual complaints; No pain during intercourse; Normal libido Menopausal Symptoms:No menopausal symptoms; Normal vaginal lubrication Psychological symptoms:No depression; No anxiety; No PMDD stable on combined HRT. SOme hair loss recently - will discuss with derm Not a fan of vacations with adult children ( 21 &19) Jhonathan Romo MD Attn: Accounting[address] [place], [address], [facility] 05/30/2023 10:34:17 05/31/2024 text/html Annual GYNReport ed bypatient.Menstrua l cycle:Normal menses Urinary symptoms:No hematuria; No incontinence Vulva:No genital lesion Vagina:Normal vaginal discharge Breast:No breast pain; No breast lump; No nipple discharge Current Contraception:Part ner had vasectomy Sexual complaints:No sexual complaints; No pain during intercourse; Normal libido Menopausal Symptoms:No menopausal symptoms; Normal vaginal lubrication Psychological symptoms:No depression; No anxiety; No PMDD stable on combined HRT. Jhonathan Romo MD Attn: Accounting[address] [facility], [place], [address], [facility] 05/31/2024 14:21:46 OBGyn Episode Ob Episode Information Episode Created Date Number of Fetuses Patient Bloodtype Patient rh Status Prepregnancy Weight lbs Domestic Partner Domestic Partner Phone Father Name Provider Engagement Executive Status 02/08/20 15 1 CLOSED Fetus Data First Name Last Name Admitted to NICU Weight (g) Sex Living Outcome Pediatric Complications Fetus ID Race Codes Race Delivery Type [id number] Vaginal Scottie Calculation Initial Scottie Date Initial Exam Date Initial Exam Provider Initial Ultrasound Date Last Menstrual Period Date Ultra Sound Weeks Gestation 0 Eighteen To Twenty Week Scottie Update Ultra Sound Date Fundal Height At Umbil Quickening Date Ultra Sound Latest Weeks Gestation Final Scottie Confirmed By Final Scottie Confirmed Date Final Scottie Date Ultra Sound Latest Days Gestation 0 0 Menstrual History Last Menstrual Date Menses Monthly On Bcp Conception Prior Menses Frequency Hcg Plus Date Menarche Onset Age Delivery Information Delivery Date Delivery Type Labor Anesthesia Weeks Gestation Incision Type Labor Labor Length Hrs Delivered By Post Complications Tubal Sterilization Discharge Date Comments 4 Discharge Information Feeding Method Contraceptive Method Maternal HG B and HCT Levels Ob Episode Information Episode Created Date Number of Fetuses Patient Bloodtype Patient rh Status Prepregnancy Weight lbs Domestic Partner Domestic Partner Phone Father Name Provider Engagement Executive Status 02/08/20 15 1 CLOSED Fetus Data First Name Last Name Admitted to NICU Weight (g) Sex Living Outcome Pediatric Complications Fetus ID Race Codes Race Delivery Type , Spontane ous [id number] Scottie Calculation Initial Scottie Date Initial Exam Date Initial Exam Provider Initial Ultrasound Date Last Menstrual Period Date Ultra Sound Weeks Gestation 0 Eighteen To Twenty Week Scottie Update Ultra Sound Date Fundal Height At Umbil Quickening Date Ultra Sound Latest Weeks Gestation Final Scottie Confirmed By Final Scottie Confirmed Date Final Scottie Date Ultra Sound Latest Days Gestation 0 0 Menstrual History Last Menstrual Date Menses Monthly On Bcp Conception Prior Menses Frequency Hcg Plus Date Menarche Onset Age Delivery Information Delivery Date Delivery Type Labor Anesthesia Weeks Gestation Incision Type Labor Labor Length Hrs Delivered By Post Complications Tubal Sterilization Discharge Date Comments 3 Discharge Information Feeding Method Contraceptive Method Maternal HG B and HCT Levels Ob Episode Information Episode Created Date Number of Fetuses Patient Bloodtype Patient rh Status Prepregnancy Weight lbs Domestic Partner Domestic Partner Phone Father Name Provider Engagement Executive Status 02/08/20 15 1 CLOSED Fetus Data First Name Last Name Admitted to NICU Weight (g) Sex Living Outcome Pediatric Complications Fetus ID Race Codes Race Delivery Type , Spontane ous [id number] Scottie Calculation Initial Scottie Date Initial Exam Date Initial Exam Provider Initial Ultrasound Date Last Menstrual Period Date Ultra Sound Weeks Gestation 0 Eighteen To Twenty Week Scottie Update Ultra Sound Date Fundal Height At Umbil Quickening Date Ultra Sound Latest Weeks Gestation Final Scottie Confirmed By Final Scottie Confirmed Date Final Scottie Date Ultra Sound Latest Days Gestation 0 0 Menstrual History Last Menstrual Date Menses Monthly On Bcp Conception Prior Menses Frequency Hcg Plus Date Menarche Onset Age Delivery Information Delivery Date Delivery Type Labor Anesthesia Weeks Gestation Incision Type Labor Labor Length Hrs Delivered By Post Complications Tubal Sterilization Discharge Date Comments 1 Discharge Information Feeding Method Contraceptive Method Maternal HG B and HCT Levels Ob Episode Information Episode Created Date Number of Fetuses Patient Bloodtype Patient rh Status Prepregnancy Weight lbs Domestic Partner Domestic Partner Phone Father Name Provider Engagement Executive Status 02/08/20 15 1 CLOSED Fetus Data First Name Last Name Admitted to NICU Weight (g) Sex Living Outcome Pediatric Complications Fetus ID Race Codes Race Delivery Type [id number] [phone] F [id number] Vaginal Scottie Calculation Initial Scottie Date Initial Exam Date Initial Exam Provider Initial Ultrasound Date Last Menstrual Period Date Ultra Sound Weeks Gestation 0 Eighteen To Twenty Week Scottie Update Ultra Sound Date Fundal Height At Umbil Quickening Date Ultra Sound Latest Weeks Gestation Final Scottie Confirmed By Final Scottie Confirmed Date Final Scottie Date Ultra Sound Latest Days Gestation 0 0 Menstrual History Last Menstrual Date Menses Monthly On Bcp Conception Prior Menses Frequency Hcg Plus Date Menarche Onset Age Delivery Information Delivery Date Delivery Type Labor Anesthesia Weeks Gestation Incision Type Labor Labor Length Hrs Delivered By Post Complications Tubal Sterilization Discharge Date Comments 2 Regional-Ep idural 37 11 GT Discharge Information Feeding Method Contraceptive Method Maternal HG B and HCT Levels
--- OUTSIDE RECORDS SUMMARY | 2024-10-08 12:13 | XMS_ITS | Referral Summary ---
Author [place] [facility] [place] [address] [facility] Address [address] [place] [address] Care Team Providers Care Commercial Tire Service Technician Name Role Phone iLdia Alvarado CONTROL CABINET ASSEMBLER Primary Care Provider [phone] Allergies No known active allergies Medications atorvastatin [...] on file Legal Sex Female 6:50 PM HEAT TREATER Gender Identity Not on file Sexual Orientation Not on file Last Filed Vital Signs Vital Sign Reading Time Taken Comments Blood Pressure 126/82 08/01/2019 1:23 PM HEAT TREATER Pulse 103 08/01/2019 1:23 PM HEAT TREATER Temperature 36.6 C (97.9 F) 08/01/2019 1:23 PM HEAT TREATER Respiratory Rate 16 08/01/2019 1:23 PM HEAT TREATER Oxygen Saturation 98% 08/01/2019 1:23 PM HEAT TREATER Inhaled Oxygen Concentration - - Weight 59 kg (130 lb) 08/01/2019 1:23 PM HEAT TREATER Height 157.5 cm (5' 2 ) 08/01/2019 1:23 PM HEAT TREATER Body Mass Index 23.78 08/01/2019 1:23 PM HEAT TREATER Plan of Treatment Not on file Insurance [facility] Care Teams Commercial Tire Service Technician Relationship Specialty Start Date End Date Lidia Alvarado NP [address] [place] [address] PCP - General Nurse Practitioner 07/27/19
== END 2024-10-08 12:11 | disposition home or self-care (01) ==
PROVIDERS: PCP Nurse Practitioner Family; Visit Provider Obstetrics & Gynecology
DX: Z12.31 Encounter for screening mammogram for malignant neoplasm of breast (principal)
CPT/HCPCS: 77063; 77067

== ENCOUNTER 2025-06-10 07:48 | Outpatient (CLI) | payer OTHER, SELFPAY ==
--- OUTSIDE RECORDS SUMMARY | 2025-06-10 07:51 | XMS_ITS | Clinical Summary ---
Author Organization [facility] [place] [address] [facility] lt Address [address] [place] [address] Care Team Providers Care Investment Banker Name Role Phone Lidia Alvarado NP Primary Care Provider [phone] Allergies No known active allergies Medications atorvastatin [...] on file Legal Sex Female 6:50 PM BUSINESS OPERATIONS CONSULTANT Gender Identity Not on file Sexual Orientation Not on file Last Filed Vital Signs Vital Sign Reading Time Taken Comments Blood Pressure 126/82 08/01/2019 1:23 PM BUSINESS OPERATIONS CONSULTANT Pulse 103 08/01/2019 1:23 PM BUSINESS OPERATIONS CONSULTANT Temperature 36.6 C (97.9 F) 08/01/2019 1:23 PM BUSINESS OPERATIONS CONSULTANT Respiratory Rate 16 08/01/2019 1:23 PM BUSINESS OPERATIONS CONSULTANT Oxygen Saturation 98% 08/01/2019 1:23 PM BUSINESS OPERATIONS CONSULTANT Inhaled Oxygen Concentration - - Weight 59 kg (130 lb) 08/01/2019 1:23 PM BUSINESS OPERATIONS CONSULTANT Height 157.5 cm (5' 2) 08/01/2019 1:23 PM BUSINESS OPERATIONS CONSULTANT Body Mass Index 23.78 08/01/2019 1:23 PM BUSINESS OPERATIONS CONSULTANT Plan of Treatment Not on file Insurance [facility] Care Teams Investment Banker Relationship Specialty Start Date End Date Lidia Alvarado NP [address] [place] [address] PCP - General Nurse Practitioner 07/27/19
--- OUTSIDE RECORDS SUMMARY | 2025-06-10 07:51 | XMS_ITS | Clinical Summary ---
Author Organization [facility] Address [address] [place] [address] Phone Care Team Providers Care Synthetic Gem Press Operator Name Role Phone Tor Girard MD Primary Care Provider [phone] Allergies No known active allergies Medications No [...] 9:33 AM CDT Height 160 cm (5' 3) 12/31/2023 9:33 AM CDT Body Mass Index 21.26 12/31/2023 9:33 AM CDT Plan of Treatment Health Maintenance Due Date Last Done Comments Hepatitis C Virus (HCV) Screening 1966 Mammogram 1966 TdaP Immunization 1966 Hepatitis B Immunization (1 of 3 - 19+ 3-dose series) 1985 Pap Smear 1987 Cervical Cancer Screening (CCS) 1996 HPV/Cotest 1996 Cologuard 2011 Colonoscopy 2011 Colorectal Cancer Screening 2011 Immunochemical Fecal Occult Blood 2011 Pneumococcal Immunization (5 0+ years) (1 of 1 - PCV) 2016 Zoster Immunization (1 of 2) 2016 Influenza Immunization (#1) 2025 SARS-COV-2 Immunization ( season) 2025 06/29/2021, 09/11/2020, 08/01/2020 Respiratory Syncytial Virus (RSV) Immunization (Adult) (1 - 1-dose 75+ series) 2041 Human Papillomavirus (HPV) Immunization (No Doses Required) Completed Meningococcal Immunization (ACWY) Aged Out No longer eligible b ased on patient's age to complete this topic Rotavirus Immunization Aged Out No lo nger eligible based on patient's age to complete this topic Insurance [employer] SO Care Teams Synthetic Gem Press Operator Relationship Specialty Start Date End Date Tor Girard MD [address] [place] [id number] PCP - General Family Medicine 12/31/23
[2025-06-10 08:01] LABS: Hematocrit 44.8 % (35.0-49.0); Hemoglobin 14.5 g/dL (12.0-15.0); Immature Granulocyte Percent A 0.3 % (0.0-0.0); Lymphocytes Absolute Auto 1.23 K/mm3 (1.10-4.50); Mean Corpuscular HGB Conc 32.4 g/dL (32-36); Mean Corpuscular Hemoglobin 30.3 pg (27.0-31.0); Mean Corpuscular Volume 93.7 fL (78.0-102.0); Nucleated Red Blood Cells Absolute Auto 0.00 K/mm3 (0.00-0.00); Nucleated Red Blood Cells Perc 0.0 % (0-0.0); Platelet Count Result 202 K/mm3 (150-420); Red Blood Count 4.78 M/mm3 (4.20-5.40); White Blood Count 6.1 K/mm3 (4.8-10.8)
[2025-06-10 08:28] LABS: Hemoglobin A1C 6.4 % (<5.7)
[2025-06-10 08:44] LABS: MALB Creatinine Ratio 7.5 mg/g (0-30)
[2025-06-10 08:47] LABS: Alanine Aminotransferase 37 U/L (6-35); Albumin Level 4.6 g/dL (3.5-5.1); Alkaline Phosphatase 81 U/L (38-126); Anion Gap 11 mmol/L (4-12); Aspartate Amino Transferase 37 U/L (14-36); Bilirubin,Total 0.6 mg/dL (0.2-1.3); Blood Urea Nitrogen 27 mg/dL (7-17); Calcium 9.1 mg/dL (8.4-10.2); Carbon Dioxide 25 mmol/L (22-30); Chloride 103 mmol/L (98-107); Cholesterol 188 mg/dL (0-200); Estimated Glomerular Filt Rate > 60; Glucose 138 mg/dL (65-110); HDL Direct 66 mg/dL; Osmolality Calculated 295 mOsm/kg (285-295); Potassium 4.8 mmol/L (3.4-5.0); Sodium 139 mmol/L (137-145); Total Protein 7.0 g/dL (6.3-8.2); Triglycerides 146 mg/dL (<150)
[2025-06-10 09:17] LABS: Thyroid Stimulating Hormone Reflex 1.810 uIU/mL (0.465-4.68)
== END 2025-06-10 07:49 | disposition home or self-care (01) ==
PROVIDERS: PCP Nurse Practitioner Family; Visit Provider Nurse Practitioner Family
DX: Z00.00 Encounter for general adult medical examination without abnormal findings (principal); E11.9 Type 2 diabetes mellitus without complications; Z12.11 Encounter for screening for malignant neoplasm of colon
CPT/HCPCS: 36415; 80053; 80061; 82043; 83036; 84443; 85025